=== PATIENT | female | born 1975 | race Caucasian/White ===

== ENCOUNTER 2022-04-15 13:43 | Outpatient (CLI) | payer OTHER, SELFPAY ==
--- NOTE | ~2022-04-15 | MR_ITS ---
EXAMINATION: MR brain/brain stem wo/w con DATE: 04/15/2022 14:31 INDICATION: Leg weakness. Loss of balance. TECHNIQUE: Magnetic resonance imaging (MRI) of the brain and brainstem was performed without and with 18 mL MultiHance intravenous contrast. COMPARISON: None. FINDINGS: There is no intracranial hemorrhage, acute infarction, or abnormal intracranial mass lesion . There are 2 foci of increased T2-weighted signal intensity in the cerebral white matter, which is n ormal for the patient's age. The ventricles are normal in size. The orbits are normal. There is mild mucosal thickening in sphenoid sinus. The mastoid air cells are normal. IMPRESSION: 1. Normal brain. Reviewed, dictated and finalized at location A. IMPRESSION: 1. Normal brain.
== END 2022-04-15 13:44 | disposition home or self-care (01) ==
PROVIDERS: PCP Internal Medicine; Visit Provider Nurse Practitioner Adult Health
DX: R26.81 Unsteadiness on feet (principal)
CPT/HCPCS: 70553; A9577

== ENCOUNTER 2022-05-11 10:03 | Outpatient (CLI) | payer OTHER, SELFPAY ==
--- NOTE | 2022-05-11 11:00 | NEURO_ITS ---
Impression: # Complains of pain in lower extremities. Edema of lower extremities noted. # Normal nerve conduction study. # Normal needle/EMG exam with no neurogenic changes noted. # Clinical correlation recommended. Nerve Conduction Studies Anti Sensory Summary Table Stim Site NR Peak (ms) P-T Amp (?V) Site1 Site2 Delta-P (ms) Dist (cm) Edy (m/s) Left Sup Fibular Anti Sensory (Ant Lat Mall) 14 cm 3.7 3.5 14 cm Ant Lat Mall 3.7 16.0 43 Right Sup Fibular Anti Sensory (Ant Lat Mall) 14 cm 3.0 6.3 14 cm Ant Lat Mall 3.0 16.0 53 Left Sural Anti Sensory (Lat Mall) Calf 3.6 2.9 Calf Lat Mall 3.6 16.0 44 Right Sural Anti Sensory (Lat Mall) Calf 3.3 3.4 Calf Lat Mall 3.3 16.0 48 Motor Summary Table Stim Site NR Onset (ms) O-P Amp (mV) Site1 Site2 Delta-0 (ms) Dist (cm) Edy (m/s) Left Peroneal Motor (Vastus Med) Ankle 3.5 1.3 Popit Ankle 6.1 32.0 52 Popit 9.6 1.4 Right Peroneal Motor (Vastus Med) Ankle 3.8 1.7 Popit Ankle 7.0 32.0 46 Popit 10.8 1.1 Left Tibial Motor (Abd Nicholson Brev) Ankle 3.6 6.8 Knee Ankle 6.7 34.0 51 Knee 10.3 9.6 Right Tibial Motor (Abd Nicholson Brev) Ankle 3.8 11.5 Knee Ankle 7.2 35.0 49 Knee 11.0 7.5 F Wave Studies NR F-Lat (ms) L-R F-Lat (ms) Left Peroneal (Mrkrs) (EDB) 45.32 0.12 Right Peroneal (Mrkrs) (EDB) 45.43 0.12 Left Tibial (Mrkrs) (Abd Hallucis) 44.84 0.51 Right Tibial (Mrkrs) (Abd Hallucis) 44.33 0.51 EMG Side Muscle Nerve Root Ins Act Fibs Amp Dur Recrt Comment Right AntTibialis Dp Br Fibular L4-5 Nml Nml Nml Nml Nml Right Gastroc Tibial S1-2 Nml Nml Nml Nml Nml Right Fibularis Long Sup Br Fibular L5-S1 Nml Nml Nml Nml Nml Right Flex Dig Long Tibial L5-S2 Nml Nml Nml Nml Nml Right Ext Dig Brev Dp Br Fibular L5, S1 Nml Nml Nml Nml Nml Left AntTibialis Dp Br Fibular L4-5 Nml Nml Nml Nml Nml Left Gastroc Tibial S1-2 Nml Nml Nml Nml Nml Left Fibularis Long Sup Br Fibular L5-S1 Nml Nml Nml Nml Nml Left Flex Dig Long Tibial L5-S2 Nml Nml Nml Nml Nml Left Ext Dig Brev Dp Br Fibular L5, S1 Nml Nml Nml Nml Nml MTDD
== END 2022-05-11 10:04 | disposition home or self-care (01) ==
PROVIDERS: PCP Internal Medicine; Visit Provider Nurse Practitioner Adult Health
DX: M47.26 Other spondylosis with radiculopathy, lumbar region (principal)
CPT/HCPCS: 95886; 95910

== ENCOUNTER 2023-10-29 15:55 | Emergency (ER) | payer OTHER, SELFPAY ==
[2023-10-29 16:09] VITALS: BP 133/91; PULSE 73; RESP 16; TEMP 36.4; O2SAT 97
[2023-10-29 16:25] LABS: Basophils Absolute Auto 0.1 K/mm3 (0.0-0.1); Basophils Percent Auto 0.7 % (0.2-1.2); Eosinophils Absolute Auto 0.1 K/mm3 (0-0.3); Eosinophils Percent Auto 1.1 % (0-4.4); Hemoglobin 13.3 g/dL (12.0-15.0); Immature Granulocyte Absolute 0.02 K/mm3 (0.00-0.031); Immature Granulocyte Percent A 0.3 % (0-0.5); Lymphocytes Absolute Auto 3.15 K/mm3 (0.9-3.2); Lymphocytes Percent Auto 43.1 % (18.3-44.2); Mean Corpuscular HGB Conc 32.4 g/dl (32-36); Mean Corpuscular Volume 89.5 fl (80-100); Mean Platelet Volume 10.4 fl (7.4-10.4); Monocytes Absolute Auto 0.8 K/mm3 (0.1-0.6); Monocytes Percent Auto 10.5 % (2.6-8.5); Neutrophils Absolute Auto 3.2 K/mm3 (1.3-6.7); Neutrophils Percent Auto 44.3 % (45.5-73.1); Platelet Count Result 351 k/mm3 (150-375); Red Blood Count 4.58 M/mm3 (4.2-5.4); Red Cell Distribution Width 12.2 % (11.5-14.5); White Blood Count 7.3 K/mm3 (4.5-10.0)
[2023-10-29 16:35] LABS: Appearance Urine Clear (Clear); Bilirubin Urine Negative (Negative); Blood Urine Negative (Negative); Color Urine Yellow (Yellow); Glucose Urine UA Negative (Negative); Ketones Urine Trace mg/dL (Negative); Leukocyte Esterase Ur Negative LEU/UL (Negative); Nitrate Urine Negative (Negative); Protein Urine Negative (Negative); Specific Grav Ur 1.019 (1.001-1.035)
[2023-10-29 16:36] LABS: Alanine Aminotransferase 25 U/L (6-35); Albumin Level 4.3 g/dL (3.5-5.1); Alkaline Phosphatase 46 U/L (38-126); Anion Gap 9 mmol/L (8-16); Aspartate Amino Transferase 22 U/L (14-36); Bilirubin,Total 0.3 mg/dL (0.2-1.3); Blood Urea Nitrogen 9 mg/dL (7-17); Calcium 9.1 mg/dL (8.4-10.2); Carbon Dioxide 27 mmol/L (22-30); Chloride 105 mmol/L (98-107); Estimated Glomerular Filt Rate > 60; Glucose 95 mg/dL (65-110); Potassium 3.3 mmol/L (3.4-5.0); Sodium 141 mmol/L (137-145)
[2023-10-29 16:49] LABS: Amphetamine Screen Urine Negative (Negative); Barbiturate Screen Urine Negative (Negative); Benzodiazepines Screen Urine Positive (Negative); Cannabinoid Screen Urine Positive (Negative); Cocaine Screen Urine Negative (Negative); Methadone Screen Urine Negative (Negative); Opiate Screen Urine Positive (Negative); Phencyclidine Screen Urine Negative (Negative)
[2023-10-29 17:01] LABS: SARS-CoV-2 RNA PCR Negative (Negative)
[2023-10-29 17:16] LABS: Add Urine Microscopic? NO
--- NOTE | 2023-10-29 17:20 | ED.GENADULT ---
HPI - General Adult General Chief complaint: Psychiatric Symptoms Stated complaint: suicidal ideations Time Seen by Provider: 10/29/23 16:06 History of Present Illness HPI narrative: 48-year-old female presented to the emergency department for evaluation of worsening suicidal ideation. Patient does have longstanding history of depression. Patient recently had her Seroquel stopped and switched to Abilify. Patient had worsening symptoms since being on the Abilify. Patient had follow-up with her psychiatrist today and due to the patient's reporting increased suicidal ideation with plan patient was referred to the emergency department. Patient states that a few days ago she did attempt to take a handful of pills/Vicodin and her stopped her. Patient denies any alcohol today, denies any self-harm today. Patient is tearful at time of exam Related Data Home Medications Medication Instructions Recorded Confirmed hydrocodone bitartrate 30 mg 30 mg PO DAILY 08/11/22 tablet,crush resist,extended rel. 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 right wrist RLS (restless legs syndrome) Social History Social History Social History: vape smoking Smoking status: Current every day smoker Alcohol intake: never Substance use: current Substance use type: marijuana Lack of Transportation: No Lack of Food: Never True Current Housing: I Have Housing Concerned About Future Housing: No Difficulty Paying Gas/Electric Bills: No Difficulty Paying for Meds: No Currently Unemployed: No Education: High School Diploma/GED Difficulty w/ Childcare or Family Care: YES Living arrangements: with family Exam Narrative: APPEARANCE: Well appearing, no pain, no distress, well-nourished. HEAD: normocephalic, atraumatic. EYES: PERRLA/EOMI, conjunctivae clear. NOSE: Normal no drainage NECK: Supple. No adenopathy, no masses. RESPIRATORY: Airway patent, respirations nonlabored. Clear to auscultation bilaterally, no rales, rhonchi, wheezing. CARDIOVASCULAR: Regular rate and rhythm without murmurs rubs or gallops. ABDOMINAL: Soft, nontender, nondistended, normal bowel sounds MUSCULOSKELETAL: Moves all extremities. Strength/ROM intact, No edema, No calf tenderness. NEURO: Alert. Cranial nerves II through XII intact. Grossly intact SKIN: Warm, dry. Normal Color PSYCHIATRIC: Tearful affect Course Course Emergency Course: Patient was evaluated by crisis and patient was a voluntary inpatient psych placement. Patient did received placement at [facility] Reevaluation(s) Reevaluation #1: Patient was medically cleared to be evaluated by the crisis counselor. Patient is medically cleared for transport and inpatient psychiatric treatment as needed. Vital Signs Vital signs: Vital Signs Temperature 97.6 F 10/29/23 16:09 Pulse Rate 73 10/29/23 16:09 Respiratory Rate 16 10/29/23 16:09 Blood Pressure 133/91 H 10/29/23 16:09 Pulse Oximetry 97 10/29/23 16:09 Oxygen Delivery Room Air 10/29/23 16:09 Temperature 97.6 F 10/29/23 19:28 Pulse Rate 62 10/29/23 19:28 Respiratory Rate 15 10/29/23 19:28 Blood Pressure 147/98 H 10/29/23 19:28 Pulse Oximetry 100 10/29/23 19:28 Oxygen Delivery Room Air 10/29/23 16:09 Medical Decision Making MDM Narrative Medical decision ma
[2023-10-29 17:35] LABS: Acetaminophen < 10 ug/mL (10-30); Ethanol < 10 mg/dL (<10); Salicylate < 1.0 mg/dL (2-20)
[2023-10-29 19:28] VITALS: BP 147/98; PULSE 62; RESP 15; TEMP 36.4; O2SAT 100
== END 2023-10-29 22:18 ==
PROVIDERS: Emergency Medicine; Emergency Provider Emergency Medicine; PCP Internal Medicine
DX: R45.851 Suicidal ideations (principal); Z11.52 Encounter for screening for COVID-19; F32.A Depression, unspecified; G25.81 Restless legs syndrome; F17.290 Nicotine dependence, other tobacco product, uncomplicated
CPT/HCPCS: 36415; 80053; 80307; 81003; 81025; 84443; 85025; 87635; 99285